=== PATIENT | female | born 2000 | race Caucasian/White ===

== ENCOUNTER 2021-09-05 11:18 | Inpatient (IN) | payer OTHER ==
[~2021-09-05] VITALS: Ht 167.6 cm; Wt 92.2 kg
[2021-09-05 11:52] LABS: BASOPHIL 1.1 % (0-2); EOSINOPHIL 22.2 % (0-5); HCT 49.7 % (37.0-47.0); LYMPHOCYTE 25.7 % (15-48); MCHC 34.2 g/dL (32.0-36.0); MCV 90.5 fL (78.0-100.0); MONOCYTE 10.1 % (0-12); MPV 9.8 fL (6.0-9.5); NEUTROPHIL 40.8 % (41-80); NRBC 0; PLT 385 K/uL (150-400); RBC 5.49 M/uL (4.20-5.40); RDW 12.4 % (11.5-14.0)
[2021-09-05 12:00] LABS: WBC 7.2 K/uL (4.0-10.5)
[2021-09-05 12:11] LABS: BUN/CREAT RATIO (CALC) 18.4 RATIO; CREATININE 0.76 mg/dL (0.51-0.95); POTASSIUM 4.1 mmol/L (3.5-5.1)
[2021-09-05] MEDS ORDERED: BREO ELLIPTA 11 EACH INH (17:05)
[2021-09-05] MEDS ORDERED: ZOLOFT50 MG PO (17:06)
[2021-09-05] MEDS ORDERED: SINGULAIR10 MG PO (17:07)
[2021-09-05] MEDS ORDERED: FAMOTIDINE10 MG PO (17:07)
[2021-09-05] MEDS ORDERED: VENTOLIN (2.5 MG/3 M NEB (17:08)
[2021-09-05] MEDS ORDERED: VENTOLIN HFA IN18 GM INH (17:08)
[2021-09-06 03:44] LABS: AMPHETAMINES NEGATIVE (NEGATIVE); BARBITURATES NEGATIVE (NEGATIVE); ECSTASY (MDMA) NEGATIVE (NEGATIVE); MARIJUANA (THC) POSITIVE (NEGATIVE); METHADONE NEGATIVE (NEGATIVE); OPIATES NEGATIVE (NEGATIVE); OXYCODONE NEGATIVE (NEGATIVE)
[2021-09-06 07:38] LABS: BASOPHIL 0.1 % (0-2); EOSINOPHIL 0 % (0-5); HCT 47.6 % (37.0-47.0); HGB 16.2 g/dl (12.5-16.0); LYMPHOCYTE 8.2 % (15-48); MCH 31.1 pg (25.0-31.0); MCV 91.4 fL (78.0-100.0); MONOCYTE 1.2 % (0-12); MPV 10.2 fL (6.0-9.5); NEUTROPHIL 89.9 % (41-80); NRBC 0; PLT 382 K/uL (150-400); RBC 5.21 M/uL (4.20-5.40); RDW 12.5 % (11.5-14.0); WBC 8.9 K/uL (4.0-10.5)
[2021-09-06 07:47] LABS: BUN/CREAT RATIO (CALC) 17.6 RATIO; CREATININE 0.68 mg/dL (0.51-0.95); POTASSIUM 4.2 mmol/L (3.5-5.1)
[2021-09-07] MEDS ORDERED: MEDROL 4MG DOSEP4 MG PO (12:57)
[2021-09-07] MEDS ORDERED: DULERA 200 MCG8.8 GM INH (12:57)
[2021-09-07] MEDS ORDERED: TESSALON PERLE100 MG PO (15:10)
== END 2021-09-07 14:32 | disposition home or self-care (01) | DRG 189 ==
LOC: FER 11:18 → FMS 15:59 → FICU 15:59 → FMS 16:00
PROVIDERS: Emergency Medicine; Nurse Practitioner; ADMIT Internal Medicine
DX: J96.01 Acute respiratory failure with hypoxia (principal); J45.901 Unspecified asthma with (acute) exacerbation; R00.0 Tachycardia, unspecified; Z20.822 Contact with and (suspected) exposure to COVID-19; K21.9 Gastro-esophageal reflux disease without esophagitis; Z82.5 Family history of asthma and other chronic lower respiratory diseases; Z79.51 Long term (current) use of inhaled steroids; Z79.899 Other long term (current) drug therapy
CPT/HCPCS: 36415; 71045; 80048; 80305; 84703; 85025; 87088; 94640; J1650; J2930; J7512; U0002

== ENCOUNTER 2021-10-15 20:34 | Emergency (ER) | payer OTHER ==
[~2021-10-15 20:34] MED LIST: BREO ELLIPTA 11 EACH INH; DULERA 200 MCG8.8 GM INH; FAMOTIDINE10 MG PO; MEDROL 4MG DOSEP4 MG PO; SINGULAIR10 MG PO; TESSALON PERLE100 MG PO; VENTOLIN (2.5 MG/3 M NEB; VENTOLIN HFA IN18 GM INH; ZOLOFT50 MG PO
[2021-10-15 22:45] LABS: BILIRUBIN NEGATIVE (NEGATIVE); BLOOD NEGATIVE Ery/uL (NEGATIVE); CLARITY CLEAR (CLEAR); COLOR YELLOW (YELLOW); GLUCOSE (U) NORMAL (NORMAL); LEUKOCYTES 1+ Leu/uL (NEGATIVE); NITRITE NEGATIVE (NEGATIVE); PROTEIN NEGATIVE (NEGATIVE); SPECIFIC GRAVITY 1.015 (1.001-1.030); UROBILINOGEN 0.2 mg/dL (0.2-1.0)
[2021-10-15 22:53] LABS: URINARY RBC RARE
[2021-10-15 22:54] LABS: BACTERIA TRACE; SQUAMOUS EPITHELIAL CELLS >50
[2021-10-16 00:56] LABS: EOSINOPHIL 3.8 % (0-5); HCT 41.5 % (37.0-47.0); HGB 14.4 g/dl (12.5-16.0); LYMPHOCYTE 10.2 % (15-48); MCH 31.3 pg (25.0-31.0); MCHC 34.7 g/dL (32.0-36.0); MCV 90.2 fL (78.0-100.0); MONOCYTE 24.7 % (0-12); MPV 9.8 fL (6.0-9.5); NEUTROPHIL 59.9 % (41-80); NRBC 0; PLT 243 K/uL (150-400); RDW 12.8 % (11.5-14.0)
[2021-10-16 01:15] LABS: ALBUMIN 3.7 g/dL (3.4-5.0); BILIRUBIN - TOTAL 0.4 mg/dL (0.2-1.0); CREATININE 0.93 mg/dL (0.51-0.95); GLOBULIN (CALCULATION) 3.2 g/dL; POTASSIUM 3.6 mmol/L (3.5-5.1); TOTAL PROTEIN 6.9 g/dL (6.4-8.2)
[2021-10-16] MEDS ORDERED: MACROBID100 MG PO (04:06)
[2021-10-16] MEDS ORDERED: ZOFRAN4 M1 PO (04:06)
== END 2021-10-16 04:22 | disposition home or self-care (01) ==
LOC: FER 20:34
PROVIDERS: Emergency Medicine
DX: N39.0 Urinary tract infection, site not specified (principal); J45.909 Unspecified asthma, uncomplicated; Z79.899 Other long term (current) drug therapy
CPT/HCPCS: 36415; 80053; 81001; 83690; 85025; J0696; J7030